=== PATIENT | female | born 1985 | race Caucasian/White ===

== ENCOUNTER 2017-03-19 08:43 | Inpatient (IN) | payer MEDICAID ==
[2017-03-19 09:21] LABS: BILIRUBIN,URINE NEGATIVE (NEGATIVE); PH,URINE 6.5 PH (5.0-7.5)
[2017-03-19 09:22] LABS: UA CHARGE (STRIP ONLY) YES; UR CULTURE IF IND NOT INDICATED
[2017-03-19] MEDS ORDERED: oxyCOD/ACETAMIN 5 MG/325 MG TABLET PO PRN (12:13)
[2017-03-19] MEDS ORDERED: SODIUM CHLORIDE FLUSH 0.9% 10 ML SYRINGE IVP PRN (12:46)
[2017-03-19] MEDS ORDERED: SODIUM CHLORIDE FLUSH 0.9% 10 ML SYRINGE IVP ONE (12:48)
--- NOTE | 2017-03-19 13:20 | Ultrasound Report ---
RENAL ULTRASOUND: 03/19/2017 CLINICAL INDICATION: Right-sided back pain. TECHNIQUE: Real-time sonographic vascular imaging was performed by the general supervisor through the kidney s utilizing both color-flow and Doppler spectral analysis. Multiple sales representative door to door static images wer e saved for review. FINDINGS: The right kidney measures 12.3 x 5.8 x 6.2 cm. There is moderate right hydronephrosis. No definite shadowing calculus is noted. The left kidney measures 11.5 x 5.8 x 6.4 cm, and appears unrem arkable. Prevoid, the bladder measures 9.0 x 3.7 x 3.8 cm, yielding a prevoid volume of 65 mL. The left ureter al jet was seen. The right ureteral jet is not visualized. IMPRESSION: MODERATE RIGHT HYDRONEPHROSIS, WITH NONVISUALIZATION OF THE RIGHT URETERAL JET, SUGGESTI VE OF OBSTRUCTION. NO DEFINITE SHADOWING CALCULUS IS APPRECIATED, BUT BOWEL GAS DOES OBSCURE THE GOOD RITY OF THE RIGHT URETER. JOB #: [id number] EXT JOB #:[id number]
[2017-03-19 13:31] LABS: CREATININE 0.6 mg/dL (0.4-1.0)
--- NOTE | 2017-03-19 13:31 | HISTORY & PHYSICAL EXAMINATION ---
DATE OF ADMISSION: 03/19/2017 IDENTIFICATION: This is a 31-year-old G2, P1-0-0-1, with a 32 week and 5 day intrauterine w ith an EDC of 05/08/2017. HISTORY OF PRESENT ILLNESS: The patient is a patient of [facility] in [place] who presents to [facility] with complaints of acute onset of right-sided pain. With respect to her preg patricia, she denies any contractions or loss of fluid. In addition, there is no vaginal bleeding. She r eports that this baby is moving well. She denies any fevers or chills and she also denies any dysuria or hematuria. Urinalysis was performed, which was negative for protein, glucose, ketones, blood, nit rites, and leukocytes. A right retroperitoneal ultrasound was performed and the preliminary report sh ows moderate right hydronephrosis. No right ureteral jet seen. Unfortunately, since our facility does not have a urologist on staff, I will have to send the patient to a different facility. In her prenatals, it is shown that she did have a consultation with [facility] at [facility]. We will plan to transfer care to the , where hopefully the patient can ge t a ureteral stent if that is Urology's decided plan. PAST MEDICAL HISTORY: Possible Zika virus exposure when she was in [place]. She returned on 09/01/2016 . She denies any diabetes, hypertension, or thyroid disorder. PAST SURGICAL HISTORY 1. delivery x1 in [place] secondary to suspected cephalopelvic disproportion. 2. Hernia repair at age 5. ALLERGIES: NO KNOWN DRUG ALLERGIES. MEDICATIONS: Prenatals. SOCIAL HISTORY: She denies any tobacco, alcohol, or illicit drug use. The patient is originally from [place] and speaks [place]. Her is Bobby Roque, phone number [phone]. They both live in [place], [place]. PAST OBSTETRICAL HISTORY: One term delivery at 40 weeks without a vaginal trial of error. In dication was suspected CPD. Epidural was used and the weight was 3650 g. The baby's name is Rivas strong. PAST GYNECOLOGICAL HISTORY: She denies any abnormal Pap smears or sexually transmitted diseases. FAMILY HISTORY: Noncontributory. REVIEW OF SYSTEMS: Negative unless otherwise stated. OBJECTIVE VITAL SIGNS: Temperature is 98.1, heart rate 98, blood pressure 105/55, respiratory rate 16, O2 satur ation 100%. 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 Most recent weight check is 150 pounds. GENERAL: The patient is a well-developed, well-nourished [place] female in no apparent distress. She is alert and oriented x3. When I saw the patient originally she was writhing in the bed and it appear ed that no position made her pain more comfortable. HEENT: Within normal limits. CARDIOVASCULAR: Rate is regular. No murmurs or rubs. PULMONARY: Lungs are clear to auscultation bilaterally. ABDOMEN: Gravid, nontender. heart tones are reactive, category I, no decelerations, no contract ions. DIAGNOSTIC DATA: Urinalysis again is negative. On 03/19/2017 a retroperitoneal ultrasound shows the p reliminary as a moderate right hydronephrosis. No right ureteral jet is seen. labs: Reveal s he is O positive, RPR nonreactive, rubella is immune, hepatitis B surface antigen is nonreactive. Hem atocrit is 35.8. HIV nonreactive. Quad screen is negative for Down syndrome, trisomy, and neural tube defects. On 10/30/2016, Pap smear is satisfactory and negative for intraepithelial lesion or maligna ncy. Chlamydia and gonorrhea are both negative. On 11/06/2016, Zika test was negative. One-hour GTT w as 124, with a corresponding hematocrit of 35%. The patient has been seen consistently at [facility] from 10/30/2016 at 12 weeks 6 days to her most rece nt visit on 03/12/2017 at 31 weeks 6 days. ASSESSMENT 1. A 31-year-old G2, P1-0-0-1, with a 32 and 5/7 week intrauterine . 2. Right ureteral obstruction. PLAN 1. Will anticipate transfer to a higher level of care. Hopefully, [facility]. 2. Pain control. JOB #: [id number] EXT JOB #:[id number]
[2017-03-19] MEDS ORDERED: SODIUM CHLORIDE FLUSH 0.9% 10 ML SYRINGE IVP SCH (14:00)
--- NOTE | 2017-03-19 14:39 | PROVIDER PROGRESS NOTE ---
Subjective - Prog Note Date Prog Note Date: 03/19/17 Prog Note Time: 14:34 - Subjective Pt reports feeling: Improved Subjective: Patient much better after Percocet 5/325 1 tab po. Pain went from 8 to a 3/10. Good FM, no VB. No contractions. Bobby at bedside. Objective - Vital Signs/Intake & Output Reviewed Vital Signs: Yes Vital Signs: Vital Signs x48h Temp Pulse Resp BP Pulse Ox 03/19/17 08:58 98.1 F 98 16 105/55 L 100 - Objective General Appearance: positive: No acute distress Abdomen: positive: Non-tender Back: positive: Nml inspection (No CVAT, no flank tenderness) - Lab Results Fish Bones: 03/19/17 13:15 Other Labs: Lab Results x24hrs 03/19/17 03/19/17 Range/Units 13:15 09:10 Creatinine 0.6 (0.4-1.0) mg/dL Estimated GFR (MDRD) 118 (>89) Urine Color YELLOW Urine Clarity CLEAR (CLEAR) Urine pH 6.5 (5.0-7.5) PH Ur Specific [place] 1.015 (1.002-1.030) Urine Protein NEGATIVE (NEGATIVE) mg/dL Urine Glucose (UA) NEGATIVE (NEGATIVE) mg/dL Urine Ketones NEGATIVE (NEGATIVE) mg/dL Urine Occult Blood NEGATIVE (NEGATIVE) Urine Nitrite NEGATIVE (NEGATIVE) Urine Bilirubin NEGATIVE (NEGATIVE) Urine Urobilinogen 0.2 (NORMAL) (NORMAL) E.U./dL Ur Leukocyte Esterase NEGATIVE (NEGATIVE) Ur Microscopic Review NOT INDICATED Urine Culture Comments NOT INDICATED Assessment/Plan - Problem List (1) Obstruction of ureter affecting , antepartum Impression: 31 yo witha 32w5d IUP Right ureteral obstruction Creatinine slightly elevated at 0.6 Pain controlled with po percocet Spoke with Drs. Sevilla (MFM attending) and Dr. Alcaraz (Urology attending ). Plan now is to follow [facility] outpatient at the [facility]. Conservative management with increased po fluids and PRN percocet.
[2017-03-19 14:45] VITALS: BP 110/59
== END 2017-03-19 14:45 | disposition home or self-care (01) | DRG 781 ==
LOC: WFO 08:43 → OB 08:47 → WFO 12:46 → OB 12:46
PROVIDERS: ADMIT Obstetrics & Gynecology; ATTEND Obstetrics & Gynecology
DX: O99.89 Other specified diseases and conditions complicating pregnancy, childbirth and the puerperium (principal); N13.1 Hydronephrosis with ureteral stricture, not elsewhere classified; O34.219 Maternal care for unspecified type scar from previous cesarean delivery; Z3A.32 32 weeks gestation of pregnancy
CPT/HCPCS: 76775; 81001; 81003; 82550; 82565; 87086; 99214